=== PATIENT | female | born 1960 | race African-American/Black ===

== ENCOUNTER → 2025-06-07 | Outpatient (CLI) | payer OTHER, SELFPAY ==
[2025-06-07 09:49] LABS: Basophils # (Auto) 0.0 Thou/mm3 (0.0-0.2); Basophils % (Auto) 1 % (0-2.5); Eosinophils # (Auto) 0.0 Thou/mm3 (0.0-0.5); Eosinophils % (Auto) 1 % (0-10); Hematocrit 38.8 % (36.0-46.0); Hemoglobin 13.1 g/dL (12.0-16.0); Immature Granulocytes Auto 0.01 Thou/mm3 (0.00-0.00); Lymphocytes # (Auto) 1.4 Thou/mm3 (1.0-4.8); Lymphocytes % (Auto) 38 % (10-50); Mean Corpuscular HGB Conc 33.8 g/dl (31.0-37.0); Mean Corpuscular Hemoglobin 30.1 pg (25.0-35.0); Mean Corpuscular Volume 89 fL (80-100); Monocytes # (Auto) 0.3 Thou/mm3 (0.0-0.8); Monocytes % (Auto) 9 % (0-12); Neutrophils # (Auto) 1.8 Thou/mm3 (1.8-7.7); Neutrophils % (Auto) 51 % (37-80); Nucleated Red Blood Cell # 0.00 Thou/mm3 (0.00-0.00); Nucleated Red Blood Cell % 0 /100 WBC (0); Platelet Count 275 Thou/mm3 (140-440); RDW Standard Deviation 39.7 fL (36.4-46.3); Red Blood Count 4.35 Miln/mm3 (4.00-5.20); White Blood Count 3.6 Thou/mm3 (3.6-11.0)
[2025-06-07 10:00] LABS: Glucose Estimated Average 171 mg/dL (80-131); Hemoglobin A1C 7.6 % Hgb (4.8-6.0)
[2025-06-07 10:13] LABS: Alanine Aminotransferase 11 U/L (10-49); Albumin, Serum 4.3 gm/dL (3.4-4.8); Albumin/Globulin Ratio 1.5 (1.2-2.2); Alkaline Phosphatase 75 U/L (46-116); Anion Gap 7 (7-16); Aspartate Amino Transferase 15 U/L (0-34); BUN/Creatinine Ratio 11 Ratio (12-20); Bilirubin,Total 0.4 mg/dL (0.3-1.2); Blood Urea Nitrogen 12 mg/dL (9-23); Calcium 10.2 mg/dL (8.3-10.6); Calcium (Corrected) 10.2 mg/dL (8.5-10.1); Carbon Dioxide 31.5 mMol/L (20.0-31.0); Cardiac Risk Estimate 2.6 RATIO (3.7-5.6); Chloride 104 mMol/L (98-107); Cholesterol 179 mg/dL (132-200); Creatinine (Component) 1.1 mg/dL (0.6-1.3); Free T4 (Free Thyroxine) 1.04 ng/dL (0.89-1.76); Globulin 2.9 gm/dL (2.3-3.5); Glucose 129 mg/dL (74-106); HDL Cholesterol 70 mg/dL (40-60); LDL Cholesterol,Calculated 88 mg/dL (0-130); Osmolality,Calculated 284 (275-295); Potassium 3.8 mMol/L (3.4-5.1); Sodium 142 mMol/L (136-145); Thyroid Stimulating Hormone 3.29 uIU/mL (0.55-4.78); Total Protein 7.2 gm/dL (5.7-8.2); Triglycerides 103 mg/dL (30-150); eGFR 57 See Note
[2025-06-07 10:50] LABS: Creatinine MALB Rnd Ur 78 mg/dL (30-125); Creatinine,Random Urine 78 mg/dL (30-125); Microalbumin Creat Ratio 28 mg/gCrea (<30); Microalbumin, Random Urine 22 mg/L (0-300)
[2025-06-10 17:49] LABS: CD19 Percentage 17 % (6-29); CD19, Absolute 238 cells/uL (110-660); CD3 Percentage 72 % (57-85); CD3, Absolute 1000 cells/uL (840-3060); CD3-CD16+CD56+ % 10 % (4-25); CD3-CD16+CD56+ (Abs) 137 cells/uL (70-760); CD4 Percentage 44 % (30-61); CD4, Absolute 610 cells/uL (490-1740); CD4/CD8 Ratio 1.58 (0.86-5.00); CD8 Percentage 28 % (12-42); CD8, Absolute 387 cells/uL (180-1170); Immunoglobulin A 221 mg/dL (70-320); Immunoglobulin G 1788 mg/dL (600-1540)
[2025-06-13 07:04] LABS: Direct LDL* 95 mg/dL (<100); Immunoglobulin M 42 mg/dL (50-300); Lymphocytes, Absolute 1382 cells/uL (850-3900)
== END | disposition home or self-care (01) ==
LOC: COPL 08:59
PROVIDERS: PCP Internal Medicine; Referring Provider Internal Medicine
DX: E11.65 Type 2 diabetes mellitus with hyperglycemia (principal); E11.21 Type 2 diabetes mellitus with diabetic nephropathy; I10 Essential (primary) hypertension; E78.5 Hyperlipidemia, unspecified; Z21 Asymptomatic human immunodeficiency virus [HIV] infection status
CPT/HCPCS: 36415; 80053; 80061; 82043; 82570; 82784; 83036; 83721; 84439; 84443; 85025; 86355; 86357; 86359; 86360